=== PATIENT | female | born 1945 | race Two or more races ===

== ENCOUNTER 2017-04-01 12:02 | Day surgery (SDC) | payer MEDICARE, OTHER ==
[2017-04-01 12:54] LABS: Mean Platelet Volume 7.6
[2017-04-01 12:56] VITALS: RESP 18; TEMP 97.3
[2017-04-01] MEDS ORDERED: ALPRAZolam 0.25 MG TAB PO STA (12:59)
[2017-04-01 13:09] LABS: Partial Thromboplastin Time 27.6 sec (22.0-30.0); Prothrombin Time 10.2 sec (9.0-12.0)
--- NOTE | 2017-04-01 14:15 | US ---
EXAMINATION TYPE: US thoracentesis DATE OF EXAM: 04/01/2017 COMPARISON: NONE HISTORY: Pleural effusion. FINDINGS: Maximal barrier technique was utilized. The skin overlying a suitable pocket of fluid was localized and the overlying skin prepped and draped. Lidocaine was used for local anesthesia. Ultras ound was used with sterile technique. A 5 Divehi catheter over guide needle was advanced into the pl eural fluid collection using ultrasound guidance catheter advanced, needle removed. Approximately 1 liter(s) of serous fluid was removed. Catheter was withdrawn and hemostasis achieved. There is no i mmediate complication. The patient discharged in stable condition without complication. IMPRESSION: STATUS POST ULTRASOUND GUIDED THORACENTESIS, POST PROCEDURE CHEST X-RAY PENDING. THIS ID OCEDURE WAS PERFORMED BY THE UNDERSIGNED.
--- NOTE | 2017-04-01 14:16 | XR ---
EXAMINATION TYPE: XR chest 1V DATE OF EXAM: 04/01/2017 COMPARISON: NONE HISTORY: Status post right thoracentesis TECHNIQUE: Single frontal view of the chest is obtained. FINDINGS: Increased density at the right lung base obscures the right heart border and hemidiaphragm . No evident pneumothorax. IMPRESSION: No evident complication status post thoracentesis
[2017-04-01 14:19] VITALS: BP 91/53; PULSE 81
== END 2017-04-01 14:45 | disposition home or self-care (01) ==
LOC: RADPROMAIN 12:02
PROVIDERS: ATTEND Family Medicine
DX: J90 Pleural effusion, not elsewhere classified (principal); C34.90 Malignant neoplasm of unspecified part of unspecified bronchus or lung
CPT/HCPCS: 32555; 36415; 71010; 85049; 85610; 85730